=== PATIENT | male | born 1975 | race Hispanic/Latino ===

== ENCOUNTER 2017-04-11 17:03 | Emergency (ER) | payer SELFPAY ==
[2017-04-11] MEDS ORDERED: Adacel (T-DAP) 0.5 ML VIAL ONE (17:32)
== END 2017-04-11 17:49 | disposition home or self-care (01) ==
LOC: ERS 17:03
DX: S61.411A Laceration without foreign body of right hand, initial encounter (principal); E78.5 Hyperlipidemia, unspecified; E11.9 Type 2 diabetes mellitus without complications; W26.0XXA Contact with knife, initial encounter
CPT/HCPCS: 12001; 90471; 90715

== ENCOUNTER 2017-04-23 14:16 | Emergency (ER) | payer SELFPAY | END 2017-04-23 15:12 | disposition home or self-care (01) | LOC: ERS 14:16 | DX: S61.412D Laceration without foreign body of left hand, subsequent encounter (principal); E78.5 Hyperlipidemia, unspecified; E11.9 Type 2 diabetes mellitus without complications ==

== ENCOUNTER 2017-04-25 06:35 | Emergency (ER) | payer SELFPAY ==
[2017-04-25 07:24] LABS: #Eosinphils 0.1 thou/uL (0.0-0.7); #Lymphocytes 1.2 thou/uL (1.20-3.40); #Monocytes 0.5 thou/uL (0.11-0.59); #Neutrophils 5.9 thou/uL (1.40-6.50); %Basophils 0.6 % (0.0-1.0); %Eosinophils 1.6 % (0.0-10.0); %Lymphocytes 15.6 % (21.0-51.0); %Monocytes 6.6 % (0.0-10.0); Hematocrit 49.2 % (42.0-52.0); Mean Platelet Volume 9.3 fL (7.4-10.4); Red Blood Cell (RBC) Count 5.46 mill/uL (4.70-6.10); White Blood Cell (WBC) Count 7.8 thou/uL (4.8-10.8)
[2017-04-25] MEDS ORDERED: Ondansetron HCl/PF 4 MG/2 ML Vial ONE (07:33)
[2017-04-25] MEDS ORDERED: Morphine 4 MG/ML VIAL ONE (07:33)
[2017-04-25] MEDS ORDERED: ISOVUE-370 76%-LOCM 1 ML ONE (07:38)
[2017-04-25 07:40] LABS: ALT (SGPT) 38 U/L (8-55); AST (SGOT) 17 U/L (5-34); Alkaline Phosphatase 80 U/L (40-150); Anion Gap 14 mmol/L (10-20); BUN (Urea Nitrogen) 17 mg/dL (8.9-20.6); Bilirubin, Total 0.7 mg/dL (0.2-1.2); CK (CPK) 56 U/L (30-200); Calc. Creatinine Clearance 0 mL/min (70-130); Calcium 8.8 mg/dL (7.8-10.44); Carbon Dioxide 23 mmol/L (22-29); Chloride 101 mmol/L (98-107); Estimated GFR-MDRD Greater than 90; Globulin 2.8 g/dL (2.4-3.5); Protein, Total 6.9 g/dL (6.0-8.3)
[2017-04-25 07:46] LABS: Troponin I Less than 0.010 ng/mL (< 0.028)
--- NOTE | 2017-04-25 08:32 | CT ---
CT ABDOMEN AND PELVIS WITH IV CONTRAST: DATE: 04/25/17. HISTORY: Right-sided abdominal pain. The patient reports associated vomiting and chest pain as well as heart palpitations. COMPARISON: 09/02/15. FINDINGS: The liver again demonstrates mild imaged attenuation likely related to fatty infiltration. The spleen, pancreas, bilateral adrenal glands, kidneys, abdominal aorta, and urinary bladder demonst rate a normal CT appearance. There are a few colonic diverticula seen within the region of the sigmoid colon. The appendix is visualized and normal in caliber. There is a soft tissue density seen in the most inferior aspect of the left inguinal canal. This may be related to strong cremasteric muscle reflex and possibly represent the most superior aspect of th e left testicle. However, this is difficult to further evaluate on this exam. There has been no significant interval change from the prior exam. IMPRESSION: 1. Fatty infiltration of the liver. 2. No acute findings are seen in the abdomen or pelvis. 3. No CT evidence of appendicitis. 4. Colonic diverticulosis. 5. Soft tissue density in the most inferior aspect left inguinal canal which may represent the super ior aspect of the left testicle and related to strong cremasteric muscle reflex. This was not seen o n the study of 09/02/15. This is incompletely imaged or evaluated on this exam. POS: [facility]
== END 2017-04-25 09:15 | disposition home or self-care (01) ==
LOC: ERS 06:35
DX: R10.11 Right upper quadrant pain (principal); R10.31 Right lower quadrant pain; R11.10 Vomiting, unspecified; E78.5 Hyperlipidemia, unspecified; E11.9 Type 2 diabetes mellitus without complications
CPT/HCPCS: 36415; 74177; 80053; 82553; 84484; 85025; 93005; 96361; 96374; 96375; J2270; J2405

== ENCOUNTER 2017-06-02 14:10 | Emergency (ER) | payer SELFPAY | END 2017-06-02 15:35 | disposition home or self-care (01) | LOC: ERS 14:10 | DX: J11.1 Influenza due to unidentified influenza virus with other respiratory manifestations (principal); E11.9 Type 2 diabetes mellitus without complications; E78.5 Hyperlipidemia, unspecified; Z79.84 Long term (current) use of oral hypoglycemic drugs | CPT/HCPCS: 87804; 99283 ==

== ENCOUNTER 2017-11-21 00:21 | Emergency (ER) | payer SELFPAY ==
[2017-11-21] MEDS ORDERED: Ondansetron ODT 8 MG TAB ONE (01:03)
[2017-11-21 01:10] LABS: #Basophils 0.1 thou/uL (0.0-0.2); #Eosinphils 0.2 thou/uL (0.0-0.7); #Lymphocytes 2.5 thou/uL (1.20-3.40); #Monocytes 0.5 thou/uL (0.11-0.59); #Neutrophils 2.8 thou/uL (1.40-6.50); %Basophils 1.2 % (0.0-1.0); %Eosinophils 2.8 % (0.0-10.0); %Lymphocytes 41.8 % (21.0-51.0); %Monocytes 8.1 % (0.0-10.0); %Neutrophils 46.1 % (42.0-75.0); Mean Corpuscular HGB CONC 34.9 g/dL (32.0-36.0); Mean Corpuscular Hemoglobin 30.6 pg (27.0-31.0); Mean Corpuscular Volume 87.7 fL (78.0-98.0); Mean Platelet Volume 8.9 fL (7.4-10.4); Platelet Count 196 thou/uL (130-400); RBC Distribution Width 11.9 % (11.5-14.5); Red Blood Cell (RBC) Count 4.91 mill/uL (4.70-6.10)
[2017-11-21 01:30] LABS: ALT (SGPT) 43 U/L (8-55); AST (SGOT) 19 U/L (5-34); Albumin 4.1 g/dL (3.5-5.0); Alkaline Phosphatase 92 U/L (40-150); Anion Gap 13 mmol/L (10-20); BUN (Urea Nitrogen) 18 mg/dL (8.9-20.6); Bilirubin, Total 0.4 mg/dL (0.2-1.2); Calc. Creatinine Clearance 0 mL/min (70-130); Calcium 8.9 mg/dL (7.8-10.44); Carbon Dioxide 24 mmol/L (22-29); Chloride 104 mmol/L (98-107); Estimated GFR-MDRD Greater than 90; Globulin 2.4 g/dL (2.4-3.5); Glucose 260 mg/dL (70-105); Lipase 41 U/L (8-78); Potassium 3.6 mmol/L (3.5-5.1); Protein, Total 6.5 g/dL (6.0-8.3); Sodium 137 mmol/L (136-145)
[2017-11-21 02:14] LABS: Bilirubin Negative (Negative); Blood, Urine Negative (Negative); Clarity CLEAR (Clear); Glucose, Urine (Dipstick) >=1000 mg/dL (Negative); Leukocyte Negative (Negative); Nitrite Negative (Negative); Protein, Urine (Dipstick) Negative (Neg-Trace); Specific Gravity, Urine 1.034 (1.002-1.036)
== END 2017-11-21 02:37 | disposition home or self-care (01) ==
LOC: ERS 00:21
DX: R10.11 Right upper quadrant pain (principal); R11.2 Nausea with vomiting, unspecified; E11.9 Type 2 diabetes mellitus without complications; E78.5 Hyperlipidemia, unspecified; Z79.84 Long term (current) use of oral hypoglycemic drugs
CPT/HCPCS: 36416; 80053; 81003; 83690; 85025; 96361; 96374; J2270

== ENCOUNTER 2018-04-02 01:53 | Emergency (ER) | payer SELFPAY ==
[2018-04-02 01:17] LABS: #Basophils 0.1 thou/uL (0.0-0.2); #Eosinphils 0.2 thou/uL (0.0-0.7); #Lymphocytes 2.9 thou/uL (1.20-3.40); #Monocytes 0.7 thou/uL (0.11-0.59); #Neutrophils 3.9 thou/uL (1.40-6.50); %Basophils 0.9 % (0.0-1.0); %Eosinophils 2.4 % (0.0-10.0); %Lymphocytes 37.6 % (21.0-51.0); %Monocytes 8.5 % (0.0-10.0); %Neutrophils 50.6 % (42.0-75.0); Hemoglobin 15.6 g/dL (14.0-18.0); Mean Corpuscular HGB CONC 32.8 g/dL (32.0-36.0); Mean Corpuscular Hemoglobin 29.6 pg (27.0-31.0); Mean Corpuscular Volume 90.2 fL (78.0-98.0); Mean Platelet Volume 9.2 fL (7.4-10.4); Platelet Count 253 thou/uL (130-400); RBC Distribution Width 12.2 % (11.5-14.5); Red Blood Cell (RBC) Count 5.29 mill/uL (4.70-6.10); White Blood Cell (WBC) Count 7.6 thou/uL (4.8-10.8)
[2018-04-02 01:44] LABS: CKMB 0.7 ng/mL (0-6.6); Troponin I Less than 0.010 ng/mL (< 0.028)
[2018-04-02 01:53] LABS: ALT (SGPT) 37 U/L (8-55); AST (SGOT) 22 U/L (5-34); Albumin 4.2 g/dL (3.5-5.0); Alkaline Phosphatase 94 U/L (40-150); Anion Gap 18 mmol/L (10-20); BUN (Urea Nitrogen) 18 mg/dL (8.9-20.6); Bilirubin, Total 0.2 mg/dL (0.2-1.2); CK (CPK) 116 U/L (30-200); Calc. Creatinine Clearance 0 mL/min (70-130); Calcium 8.7 mg/dL (7.8-10.44); Carbon Dioxide 17 mmol/L (22-29); Chloride 103 mmol/L (98-107); Estimated GFR-MDRD Greater than 90; Globulin 2.8 g/dL (2.4-3.5); Glucose 280 mg/dL (70-105); Lipase 19 U/L (8-78); Potassium 3.9 mmol/L (3.5-5.1); Sodium 134 mmol/L (136-145)
[~2018-04-02 01:53] MED LIST: Acetaminophen 500 MG TAB ONE; Ondansetron PF 4 MG/2 ML Vial ONE; Pantoprazole 40 MG VIAL ONE
[2018-04-02] MEDS ORDERED: Ketorolac Tromethamine 30 MG/ML VIAL ONE (02:28)
--- NOTE | 2018-04-02 09:27 | RAD ---
PORTABLE CHEST: HISTORY: Chest pain. COMPARISON: 11/28/2016 study. FINDINGS: Heart size and mediastinum are within normal limits. The lungs are clear of infiltrates. N significa nt bony findings. IMPRESSION: No active intrathoracic disease. POS: [facility]
== END 2018-04-02 02:44 | disposition home or self-care (01) ==
LOC: ERS 01:53
DX: R11.2 Nausea with vomiting, unspecified (principal); R19.7 Diarrhea, unspecified; R10.13 Epigastric pain; R07.2 Precordial pain; R51 Headache; R50.9 Fever, unspecified; E78.5 Hyperlipidemia, unspecified; E11.9 Type 2 diabetes mellitus without complications; Z79.899 Other long term (current) drug therapy; Z79.84 Long term (current) use of oral hypoglycemic drugs
CPT/HCPCS: 71045; 80053; 82553; 83690; 84484; 85025; 93005; 96361; 96372; 96374; 96375; C9113; J1885; J2405

== ENCOUNTER 2018-04-15 22:16 | Emergency (ER) | payer SELFPAY ==
[~2018-04-15 22:16] MED LIST changes: -Acetaminophen 500 MG TAB ONE; +ISOVUE-370 76%-LOCM 1 ML ONE; -Ondansetron PF 4 MG/2 ML Vial ONE; -Pantoprazole 40 MG VIAL ONE
[2018-04-15] MEDS ORDERED: Acetaminophen 500 MG TAB ONE (22:40)
[2018-04-16] MEDS ORDERED: Ketorolac Tromethamine 30 MG/ML VIAL ONE (00:24)
[2018-04-16 00:55] LABS: #Eosinphils 0.1 thou/uL (0.0-0.7); #Lymphocytes 1.5 thou/uL (1.20-3.40); #Monocytes 0.7 thou/uL (0.11-0.59); #Neutrophils 3.7 thou/uL (1.40-6.50); %Basophils 0.7 % (0.0-1.0); %Lymphocytes 24.6 % (21.0-51.0); %Monocytes 12.2 % (0.0-10.0); %Neutrophils 60.5 % (42.0-75.0); Hemoglobin 14.4 g/dL (14.0-18.0); Mean Corpuscular HGB CONC 33.8 g/dL (32.0-36.0); Mean Corpuscular Volume 88.9 fL (78.0-98.0); Platelet Count 203 thou/uL (130-400)
[2018-04-16 01:07] LABS: ALT (SGPT) 42 U/L (8-55); AST (SGOT) 30 U/L (5-34); Albumin 3.7 g/dL (3.5-5.0); Alkaline Phosphatase 54 U/L (40-150); Anion Gap 14 mmol/L (10-20); BUN (Urea Nitrogen) 13 mg/dL (8.9-20.6); Bilirubin, Total 0.5 mg/dL (0.2-1.2); Calc. Creatinine Clearance 0 mL/min (70-130); Calcium 8.6 mg/dL (7.8-10.44); Carbon Dioxide 19 mmol/L (22-29); Chloride 102 mmol/L (98-107); Estimated GFR-MDRD Greater than 90; Globulin 2.9 g/dL (2.4-3.5); Glucose 210 mg/dL (70-105); Lipase 6 U/L (8-78); Potassium 4.1 mmol/L (3.5-5.1); Protein, Total 6.6 g/dL (6.0-8.3); Sodium 131 mmol/L (136-145)
[2018-04-16 01:13] LABS: Bilirubin Negative (Negative); Blood, Urine Negative (Negative); Clarity CLEAR (Clear); Glucose, Urine (Dipstick) 250 mg/dL (Negative); Leukocyte Negative (Negative); Nitrite Negative (Negative); Protein, Urine (Dipstick) Negative (Neg-Trace); pH, Urine 5.5 (5.0-9.0)
[2018-04-16 01:16] LABS: Specific Gravity, Urine 1.054 (1.002-1.036)
--- NOTE | 2018-04-16 08:23 | RAD ---
PORTABLE CHEST 1 VIEW: Date: 04/15/18 Time: 1119 hours HISTORY: Fever, sore throat, cough, and chills. FINDINGS: Comparison made with exam of 04/02/18. The heart size is normal. The lungs are expanded without focal areas of consolidation, pneumothorax, or pleural effusion. IMPRESSION: No acute process. POS: [facility]
--- NOTE | 2018-04-16 10:26 | CT ---
PRELIMINARY REPORT/[facility]/EMERGENTY AFTER-HOURS PROCEDURE CT Abdomen and Pelvis With Intravenous Contrast EXAM DATE/TIME: 04/16/2018 12:09 AM CLINICAL HISTORY: 42 years old, male; Pain; Abdominal pain; Generalized; Patient HX: Previous on pacs; Er 5; M42 presen ts to the ed due to fever of 102 onset today. PT reports associated symptoms of sore throat, cough, a nd chills. PT reports HX of having pneumonia twice. Generalized abdominal pain; Eval for possible infection. Diarrhea TECHNIQUE: Axial computed tomography images of the abdomen and pelvis with intravenous contrast. Coronal reformatted images were created and reviewed. COMPARISON: No relevant prior studies available. FINDINGS: Lower thorax: No acute findings. ABDOMEN: Liver: Hepatic steatosis. Gallbladder and bile ducts: Normal. No calcified stones. No ductal dilation. Pancreas: Normal. No ductal dilation. Spleen: Normal. No splenomegaly. Adrenals: Normal. No mass. Kidneys and ureters: Normal. No hydronephrosis. Stomach and bowel: No bowel wall thickening or intestinal obstruction. Appendix: Normal appendix. PELVIS: Bladder: Unremarkable as visualized. Reproductive: Unremarkable as visualized. ABDOMEN and PELVIS: Intraperitoneal space: Normal. No free air. No significant fluid collection. Bones/joints: No acute fracture. No dislocation. Soft tissues: Right inguinal hernia containing fat only. Vasculature: Normal. No abdominal aortic aneurysm. Lymph nodes: Normal. No enlarged lymph nodes. IMPRESSION: No acute findings. Thank you for allowing us to participate in the care of your patient. Dictated and Authenticated by: Errol Garcia MD 04/16/2018 12:25 AM Central Time ([place] & [place]) FINAL REPORT CT ABDOMEN AND PELVIS WITH IV CONTRAST: Date: 04/15/18 FINDINGS/IMPRESSION: I agree with the preliminary report given by Filiberto. POS: [facility]
== END 2018-04-16 03:44 | disposition home or self-care (01) ==
LOC: ERS 22:16
DX: K52.9 Noninfective gastroenteritis and colitis, unspecified (principal); E78.00 Pure hypercholesterolemia, unspecified; E78.5 Hyperlipidemia, unspecified; E11.9 Type 2 diabetes mellitus without complications; Z79.84 Long term (current) use of oral hypoglycemic drugs; Z79.899 Other long term (current) drug therapy
CPT/HCPCS: 36415; 71045; 74177; 80053; 81003; 83690; 85025; 87040; 87081; 87430; 87804; 96361; 96374; J1885

== ENCOUNTER 2018-08-14 23:59 | Emergency (ER) | payer SELFPAY ==
[2018-08-15 00:37] LABS: #Basophils 0.1 thou/uL (0.0-0.2); #Eosinphils 0.1 thou/uL (0.0-0.7); #Lymphocytes 2.8 thou/uL (1.20-3.40); #Monocytes 0.5 thou/uL (0.11-0.59); #Neutrophils 3.6 thou/uL (1.40-6.50); %Lymphocytes 39.5 % (21.0-51.0); %Neutrophils 50.5 % (42.0-75.0); Hemoglobin 14.9 g/dL (14.0-18.0); Mean Corpuscular HGB CONC 32.9 g/dL (32.0-36.0); Mean Corpuscular Hemoglobin 29.4 pg (27.0-31.0); Mean Corpuscular Volume 89.4 fL (78.0-98.0); Mean Platelet Volume 9.1 fL (7.4-10.4); Platelet Count 216 thou/uL (130-400); RBC Distribution Width 12.1 % (11.5-14.5); Red Blood Cell (RBC) Count 5.07 mill/uL (4.70-6.10); White Blood Cell (WBC) Count 7.1 thou/uL (4.8-10.8)
[2018-08-15 00:44] LABS: INR-International Normal Ratio 0.9; Prothrombin Time 11.9 SEC (12.0-14.7)
[2018-08-15 00:45] LABS: PTT 27.8 SEC (22.9-36.1)
[2018-08-15] MEDS ORDERED: Metoclopramide HCl 10 MG/2 ML VIAL ONE (00:51)
[2018-08-15] MEDS ORDERED: diphenhydrAMINE 50 MG/ML VIAL ONE (00:51)
[2018-08-15 01:02] LABS: ALT (SGPT) 39 U/L (8-55); AST (SGOT) 16 U/L (5-34); Albumin 4.1 g/dL (3.5-5.0); Alkaline Phosphatase 109 U/L (40-150); Anion Gap 13 mmol/L (10-20); BUN (Urea Nitrogen) 21 mg/dL (8.9-20.6); Bilirubin, Total 0.3 mg/dL (0.2-1.2); Calc. Creatinine Clearance 0 mL/min (70-130); Calcium 9.2 mg/dL (7.8-10.44); Carbon Dioxide 24 mmol/L (22-29); Chloride 103 mmol/L (98-107); Estimated GFR-MDRD Greater than 90; Globulin 2.5 g/dL (2.4-3.5); Glucose 304 mg/dL (70-105); Potassium 3.7 mmol/L (3.5-5.1); Protein, Total 6.6 g/dL (6.0-8.3); Sodium 136 mmol/L (136-145)
--- NOTE | 2018-08-15 08:08 | RAD ---
PORTABLE CHEST: 08/15/2018 PROVIDED CLINICAL HISTORY: Headache. Slurred speech. COMPARISON: 04/15/2018 FINDINGS: The cardiac and mediastinal silhouette is unchanged in appearance. The lungs appear clear. No pleur al fluid or pneumothorax apparent. IMPRESSION: No evidence for an acute cardiopulmonary process. POS: [facility]
--- NOTE | 2018-08-15 08:41 | CT ---
PRELIMINARY REPORT/[facility]/EMERGENTY AFTER-HOURS PROCEDURE CT Head Without Contrast EXAM DATE/TIME: 08/15/2018 12:40 AM CLINICAL HISTORY: 42 years old, male; Signs and symptoms; Numbness / parasthesia; Patient HX: M42 presents to ed for st roke like SX. PT reports headache began 2 days ago that has gotten progressively worse, then facial n umbness began 11: 30am tuesday and has gotten worse. PT reports he is having some difficulty speaking and some changes in vision. PT denies fever. PT denies similar SX previously, has no HX of headaches or migraines, denies any recent trauma or injury. Hx- diabetes, takes medication, no allergies to medications. TECHNIQUE: Axial computed tomography images of the head/brain without contrast. COMPARISON: No relevant prior studies available. FINDINGS: Brain: Normal. No hemorrhage. No significant white matter disease. No edema. Ventricles: Normal. No ventriculomegaly. Bones/joints: Unremarkable. No acute fracture. Sinuses: Visualized sinuses are unremarkable. No acute sinusitis. Mastoid air cells: Visualized mastoid air cells are unremarkable. No mastoid effusion. Soft tissues: Unremarkable. IMPRESSION: No acute intracranial abnormality. Thank you for allowing us to participate in the care of your patient. Dictated and Authenticated by: Aislinn Gardiner MD 08/15/2018 1:30 AM Central Time ([place] & [place]) FINAL REPORT HEAD CT WITHOUT CONTRAST: COMPARISON: 10/06/2016. HISTORY: Progressively worsening headache. FINDINGS: This report is in agreement with the preliminary report by [facility]. No acute intracranial process. POS: [facility]
== END 2018-08-15 02:21 | disposition home or self-care (01) ==
LOC: ERS 23:59
DX: R51 Headache (principal); E78.5 Hyperlipidemia, unspecified; E11.9 Type 2 diabetes mellitus without complications; Z79.84 Long term (current) use of oral hypoglycemic drugs
CPT/HCPCS: 70450; 71045; 80053; 84484; 85025; 85610; 85730; 93005; 96374; 96375; J1200; J2765

== ENCOUNTER 2019-01-17 21:13 | Emergency (ER) | payer SELFPAY ==
--- NOTE | 2019-01-17 22:42 | RAD ---
EXAM: Chest Two Views 01/17/2019 10:39 PM HISTORY: Fever with cough and toothache COMPARISON: July 22, 2013 FINDINGS: Heart: Normal in size and contour. Pulmonary vessels: Normal. Costophrenic angles: Clear. Lungs: No confluent pneumonia, overt edema, pleural effusion, or other acute process. Pneumothorax: None. Osseous structures:Intact. Additional findings: None. IMPRESSION: No significant acute intrathoracic disease.
[2019-01-17] MEDS ORDERED: Acetaminophen 500 MG TAB ONE (23:37)
--- NOTE | 2019-01-20 14:32 | EKG ---
Test Reason : Blood Pressure : / mmHG Vent. Rate : 089 BPM Atrial Rate : 089 BPM P-R Int : 162 ms QRS Dur : 106 ms QT Int : 364 ms P-R-T Axes : 032 -30 012 degrees QTc Int : 442 ms Normal sinus rhythm Left axis deviation Abnormal ECG Confirmed by MAN LÓPEZ ([id number]), associate editor BRIGIDA MENDEZ ([id number]) on 01/20/2019 2:32:37 PM Referred By: Confirmed By:MAN LÓPEZ
== END 2019-01-18 01:06 | disposition home or self-care (01) ==
LOC: ERS 21:13
DX: J06.9 Acute upper respiratory infection, unspecified (principal); R07.89 Other chest pain; E78.5 Hyperlipidemia, unspecified; E78.00 Pure hypercholesterolemia, unspecified; E11.9 Type 2 diabetes mellitus without complications; Z79.899 Other long term (current) drug therapy
CPT/HCPCS: 36416; 71046; 87804; 93005; 94640; J7620